=== PATIENT | female | born 1965 ===

== ENCOUNTER → 2020-08-21 | Outpatient (REF) ==
--- NOTE | 2020-08-21 10:46 | REPPI ---
INDICATION: BACK PAIN, KNEE PAIN. COMPARISON: No comparison radiographs.. TECHNIQUE: AP, lateral, and lateral spot views are presented. FINDINGS: Lumbar vertebral body heights are preserved. There is no evidence of spondylolysis or spondylolisthesis. Alignment is normal. There is degenerative disc spurring and very slight narrowing of the disc spaces at L3-4 and L4-5. No bony destructive lesion is seen. Facet joint sclerosis and hypertrophy are present bilaterally at L5-S1, and to a lesser extent, at L4-5. There is osteoarthritic spurring and sclerosis at the SI joints mild in degree. The SI joints and sacrum are intact. Visualized bowel gas pattern is normal. IMPRESSION: Mild degenerative disc disease at L3-4 and L4-5. Osteoarthritic facet hypertrophy at L5-S1 and to a lesser extent at L4-5 bilaterally. Degenerative sclerosis at the SI joints bilaterally. <Electronically signed by Bennie Christopher > 08/21/20 [id number]
--- NOTE | 2020-08-21 10:47 | REPPI ---
INDICATION: BACK PAIN, KNEE PAIN. COMPARISON: None. TECHNIQUE: Five views of the left knee are presented. FINDINGS: Five views of the left knee demonstrate mild medial compartment osteophytic lipping. Joint spaces appear preserved. There is minimal patellar spurring on the lateral radiograph. No evidence of joint effusion or erosive change.. No fracture or subluxation is seen. No opaque foreign body noted. IMPRESSION: Mild medial and patellofemoral compartment osteoarthritic spurring. Otherwise negative.. <Electronically signed by Bennie Christopher > 08/21/20 [id number]
== END ==
LOC: M PLAIMG 09:10
PROVIDERS: ATTEND Internal Medicine
DX: Z00.00 Encounter for general adult medical examination without abnormal findings (principal)